=== PATIENT | male | born 1970 | race Caucasian/White ===

== ENCOUNTER 2019-07-19 20:57 | Emergency (ER) | payer MEDICAID, OTHER ==
[~2019-07-19] VITALS: Ht 180.3 cm; Wt 90.0 kg
[2019-07-19 21:00] VITALS: BP 116/81
[2019-07-19] MEDS ORDERED: ibuprofen tablet 400 MG TABLET PO ONE (21:40)
== END 2019-07-19 21:43 | disposition home or self-care (01) ==
LOC: ER 20:59
DX: S20.211A Contusion of right front wall of thorax, initial encounter (principal); F17.200 Nicotine dependence, unspecified, uncomplicated; W01.10XA Fall on same level from slipping, tripping and stumbling with subsequent striking against unspecified object, initial encounter; Y93.89 Activity, other specified; Y92.89 Other specified places as the place of occurrence of the external cause; Y99.8 Other external cause status
CPT/HCPCS: 71101; 99284